=== PATIENT | male | born 1950 | race Caucasian/White ===

== ENCOUNTER 2018-01-05 04:55 | Inpatient (IN) | payer OTHER ==
[~2018-01-05] VITALS: Ht 182.9 cm; Wt 91.9 kg
[~2018-01-05 04:55] MED LIST: AMLO5 PO; ASPI81CH PO; ATEN50 PO; CIPR500 PO; DIPH50 PO; FURO20 PO; LORA10 PO; NADO40 PO; Omeprazole20 M1 PO; RANI150 PO; SPIR50 PO
[2018-01-05 05:24] LABS: BASOPHILS ABSOLUTE AUTO 0.04 K/mm3 (0.00-0.23); BASOPHILS PERCENT AUTO 1 % (0-2); EOSINOPHILS ABSOLUTE AUTO 0.01 K/mm3 (0.00-0.68); EOSINOPHILS PERCENT AUTO 0 % (0-6); Hematocrit 40.3 % (37.0-53.0); Hemoglobin 13.9 g/dL (13.5-17.5); IMMATURE GRAN ABSOLUTE AUTO 0.01 K/mm3 (0.00-0.10); IMMATURE GRAN PERCENT AUTO 0 % (0-1); LYMPHOCYTES ABSOLUTE AUTO 0.41 K/mm3 (0.84-5.20); LYMPHOCYTES PERCENT AUTO 7 % (21-46); MONOCYTES ABSOLUTE AUTO 0.45 K/mm3 (0.16-1.47); MONOCYTES PERCENT AUTO 7 % (4-13); Mean Corpuscular HGB 35.8 pg (26.0-34.0); Mean Corpuscular HGB Conc 34.5 g/dL (31.5-36.5); Mean Corpuscular Volume 104 fL (80-100); NEUTROPHILS ABSOLUTE AUTO 5.15 K/mm3 (1.96-9.15); NEUTROPHILS PERCENT AUTO 85 % (41-73); RDW Coefficient Variation 12.4 % (11.7-14.2); RDW Standard Deviation 47.3 fL (35.1-46.3); Red Blood Cell Count 3.88 M/mm3 (4.30-5.90); White Blood Cell Count 6.07 K/mm3 (4.00-11.30)
[2018-01-05 05:33] LABS: Platelet Count 43 K/mm3 (150-400)
[2018-01-05 05:40] LABS: Alanine Aminotransfer (ALT/SGP 116 U/L (12-78); Albumin, Blood 3.3 g/dL (3.4-5.0); Albumin/Globulin Ratio 0.7 (0.8-1.8); Alk Phos 93 U/L (50-136); Anion Gap 20 mmol/L (6-16); Aspartate Aminotrans (AST/SGOT 165 U/L (12-37); Bilirubin, Total 5.1 mg/dL (0.1-1.0); Blood Urea Nitrogen 11 mg/dL (8-24); Bun/Creatinine Ratio 15.4 (12.0-20.0); CO2, Blood 21 mmol/L (21-32); Calcium, Blood 8.9 mg/dL (8.5-10.1); Chloride, Blood 95 mmol/L (98-108); Creatinine, Blood 0.72 mg/dL (0.60-1.20); Globulin, Blood 4.6 g/dL (2.2-4.0); Glomerular Filtration Rate >60 (60-); Glucose, Blood 131 mg/dL (70-99); Potassium, Blood 3.6 mmol/L (3.5-5.5); Sodium, Blood 136 mmol/L (136-145); Total Protein, Blood 7.9 g/dL (6.4-8.2)
[2018-01-05 05:43] LABS: International Normalized Ratio 1.36; Prothrombin Time Results 13.8 Sec (9.7-11.5)
[2018-01-05] MEDS ORDERED: FINA5 PO (06:42)
[2018-01-05] MEDS ORDERED: TAMS.4ER PO (06:43)
[2018-01-05] MEDS ORDERED: GABA300 PO (06:43)
[2018-01-05] MEDS ORDERED: Advair Hfa 230-12 GM (06:44)
[2018-01-05 10:31] LABS: Alpha Feto Protein, Tumor Mkr 4.4 ng/mL (0.0-8.0); Percent Saturation 92.7 % (20.0-50.0)
[2018-01-05 10:34] LABS: Bilirubin, Direct 2.1 mg/dL (0.0-0.3)
[2018-01-05 10:35] LABS: Acetaminophen, Random <2.0 ug/mL (10.0-30.0)
[2018-01-05 11:36] LABS: Hematocrit 34.4 % (37.0-53.0); Hemoglobin 11.9 g/dL (13.5-17.5)
[2018-01-05] MEDS ORDERED: RANI150EL PO (11:36)
[2018-01-05 17:12] LABS: Hematocrit 32.5 % (37.0-53.0); Hemoglobin 11.1 g/dL (13.5-17.5)
[2018-01-05 23:14] LABS: Hematocrit 33.7 % (37.0-53.0); Hemoglobin 11.6 g/dL (13.5-17.5)
[2018-01-05 23:17] LABS: Source, Urine Clean Catch
[2018-01-05 23:21] LABS: Blood, Urine 1+ (Neg); Glucose Qualitative, Urine Neg (Neg); Ketones, Urine 1+ (Neg); Leukocyte Esterase, Urine 1+ (Neg); Nitrite, Urine Neg (Neg); Protein, Urine Neg (Neg); Urobilinogen, Urine 2+ (Normal)
[2018-01-05 23:24] LABS: Appearance, Urine Clear (Clear); Bilirubin, Urine 1+ (Neg); Color, Urine Amber (P-Yellow)
[2018-01-05 23:30] LABS: Bacteria Few /hpf; Red Blood Cells, Urine 0-2 /hpf (0-2); Squamous Epithelial Cells Few /hpf (Few)
[2018-01-06 04:43] LABS: Hematocrit 33.6 % (37.0-53.0); Hemoglobin 11.4 g/dL (13.5-17.5); Mean Corpuscular HGB 36.2 pg (26.0-34.0); Mean Corpuscular HGB Conc 33.9 g/dL (31.5-36.5); Mean Platelet Volume 12.7 fL (9.1-12.4); RDW Coefficient Variation 12.3 % (11.7-14.2); RDW Standard Deviation 48.5 fL (35.1-46.3); Red Blood Cell Count 3.15 M/mm3 (4.30-5.90); White Blood Cell Count 3.45 K/mm3 (4.00-11.30)
[2018-01-06 04:50] LABS: Mean Corpuscular Volume 107 fL (80-100); Platelet Count 45 K/mm3 (150-400)
[2018-01-06 04:56] LABS: Alanine Aminotransfer (ALT/SGP 103 U/L (12-78); Albumin, Blood 2.5 g/dL (3.4-5.0); Albumin/Globulin Ratio 0.7 (0.8-1.8); Alk Phos 70 U/L (50-136); Anion Gap 5 mmol/L (6-16); Aspartate Aminotrans (AST/SGOT 166 U/L (12-37); Bilirubin, Total 4.1 mg/dL (0.1-1.0); Blood Urea Nitrogen 12 mg/dL (8-24); Bun/Creatinine Ratio 17.9 (12.0-20.0); CO2, Blood 29 mmol/L (21-32); Calcium, Blood 7.9 mg/dL (8.5-10.1); Chloride, Blood 105 mmol/L (98-108); Creatinine, Blood 0.67 mg/dL (0.60-1.20); Globulin, Blood 3.5 g/dL (2.2-4.0); Glomerular Filtration Rate >60 (60-); Glucose, Blood 86 mg/dL (70-99); Magnesium, Blood 1.8 mg/dL (1.6-2.4); Phosphorus, Blood 2.7 mg/dL (2.5-4.9); Potassium, Blood 3.8 mmol/L (3.5-5.5); Sodium, Blood 139 mmol/L (136-145)
[2018-01-06 06:11] LABS: ALPHA-1-ANTITRYPSIN, SERUM 138 mg/dL (90-200)
[2018-01-06 07:11] LABS: HBSAG SCREEN Negative (Negative); HEP A AB, IGM Negative (Negative); HEP B CORE AB, IGM Negative (Negative); HEP C VIRUS AB <0.1 (0.0-0.9)
[2018-01-06 09:08] LABS: HBSAG SCREEN Negative (Negative); HEP B CORE AB, TOT Negative (Negative); HEP C VIRUS AB 0.1 (0.0-0.9)
[2018-01-07 15:06] LABS: CERULOPLASMIN 14.2 mg/dL (16.0-31.0)
[2018-01-08 04:57] LABS: Hematocrit 34.2 % (37.0-53.0); Hemoglobin 11.6 g/dL (13.5-17.5); Mean Corpuscular HGB 35.3 pg (26.0-34.0); Mean Corpuscular HGB Conc 33.9 g/dL (31.5-36.5); Mean Platelet Volume 12.1 fL (9.1-12.4); Platelet Count 55 K/mm3 (150-400); RDW Coefficient Variation 11.9 % (11.7-14.2); RDW Standard Deviation 45.4 fL (35.1-46.3); Red Blood Cell Count 3.29 M/mm3 (4.30-5.90); White Blood Cell Count 3.13 K/mm3 (4.00-11.30)
[2018-01-08 05:01] LABS: Mean Corpuscular Volume 104 fL (80-100)
[2018-01-08 05:44] LABS: Anion Gap 9 mmol/L (6-16); Blood Urea Nitrogen 9 mg/dL (8-24); Bun/Creatinine Ratio 12.8 (12.0-20.0); CO2, Blood 23 mmol/L (21-32); Calcium, Blood 7.9 mg/dL (8.5-10.1); Chloride, Blood 107 mmol/L (98-108); Glomerular Filtration Rate >60 (60-); Glucose, Blood 93 mg/dL (70-99); Potassium, Blood 3.8 mmol/L (3.5-5.5); Sodium, Blood 139 mmol/L (136-145)
[2018-01-08] MEDS ORDERED: BENZ100A PO (10:15)
[2018-01-08] MEDS ORDERED: CIPR500 PO (10:15)
[2018-01-08] MEDS ORDERED: AZELASTINE137 MCG/0. (10:15)
[2018-01-08 11:41] LABS: Calcium, Ionized (POC) 0.97 mmol/L (1.10-1.46); Chloride (POC) 95 mmol/L (98-108); Creatinine (POC) 0.7 mg/dL (0.8-1.3); Glucose (ISTAT POC) 134 mg/dL (70-99); Hemoglobin (POC) 13.9 g/dL (13.5-17.5); Sodium (POC) 136 mmol/L (135-148); Total CO2 (POC) 24 mmol/L (21-32)
== END 2018-01-08 10:41 | disposition home or self-care (01) | DRG 432 ==
LOC: ER 04:55 → MEDS 04:56 → ICUE 04:56 → PCU 04:56 → MEDS 07:43 → ICUE 12:55 → MEDS 01-06 17:08
PROVIDERS: Emergency Medicine; Internal Medicine; Student in an Organized Health Care Education/Training Program
PROC: 06L38CZ Occlusion of Esophageal Vein with Extraluminal Device, Via Natural or Artificial Opening Endoscopic (ICD-10-PCS; principal; 2018-01-06 10:00)
DX: K70.30 Alcoholic cirrhosis of liver without ascites (principal); I85.11 Secondary esophageal varices with bleeding; F10.239 Alcohol dependence with withdrawal, unspecified; K76.6 Portal hypertension; I10 Essential (primary) hypertension; Z79.82 Long term (current) use of aspirin; K21.9 Gastro-esophageal reflux disease without esophagitis; K70.10 Alcoholic hepatitis without ascites; R56.9 Unspecified convulsions; D64.9 Anemia, unspecified
CPT/HCPCS: 36415; 80047; 80048; 80053; 80074; 81001; 82103; 82105; 82248; 82390; 82728; 83516; 83540; 83550; 83690; 83735; 84100; 85014; 85018; 85025; 85027; 85610; 86038; 86317; 86704; 86708; 86803; 86850; 86900; 86901; 87340; 93005; 93010; 93975; 96365; 96366; 96368; 99285-25; C9113; G0480; J0696; J2060; J2250; J3411; J3475; J3480; J7042; J7050; J7120

== ENCOUNTER 2020-12-08 21:58 | Emergency (ER) | payer OTHER ==
[~2020-12-08] VITALS: Ht 182.9 cm; Wt 79.4 kg
[~2020-12-08 21:58] MED LIST changes: +AZELASTINE137 MCG/0.; +Advair Hfa 230-12 GM; +BENZ100A PO; +FINA5 PO; +GABA300 PO; +RANI150EL PO; +TAMS.4ER PO
[2020-12-08 22:52] LABS: BASOPHILS ABSOLUTE AUTO 0.02 K/mm3 (0.00-0.23); BASOPHILS PERCENT AUTO 0 % (0-2); EOSINOPHILS PERCENT AUTO 0 % (0-6); Hematocrit 38.6 % (37.0-53.0); Hemoglobin 13.4 g/dL (13.5-17.5); IMMATURE GRAN ABSOLUTE AUTO 0.01 K/mm3 (0.00-0.10); IMMATURE GRAN PERCENT AUTO 0 % (0-1); LYMPHOCYTES ABSOLUTE AUTO 0.22 K/mm3 (0.84-5.20); LYMPHOCYTES PERCENT AUTO 5 % (21-46); MONOCYTES ABSOLUTE AUTO 0.35 K/mm3 (0.16-1.47); MONOCYTES PERCENT AUTO 7 % (4-13); Mean Corpuscular HGB 34.8 pg (26.0-34.0); Mean Corpuscular HGB Conc 34.7 g/dL (31.5-36.5); Mean Corpuscular Volume 100 fL (80-100); NEUTROPHILS ABSOLUTE AUTO 4.34 K/mm3 (1.96-9.15); NEUTROPHILS PERCENT AUTO 88 % (41-73); Platelet Count 62 K/mm3 (150-400); RDW Coefficient Variation 13.9 % (11.7-14.2); RDW Standard Deviation 50.9 fL (35.1-46.3); Red Blood Cell Count 3.85 M/mm3 (4.30-5.90); White Blood Cell Count 4.94 K/mm3 (4.00-11.30)
[2020-12-08 23:01] LABS: Alanine Aminotransfer (ALT/SGP 47 U/L (12-78); Albumin, Blood 3.4 g/dL (3.4-5.0); Albumin/Globulin Ratio 0.8 (0.8-1.8); Alk Phos 66 U/L (50-136); Anion Gap 18 mmol/L (6-16); Aspartate Aminotrans (AST/SGOT 78 U/L (12-37); Bilirubin, Total 3.7 mg/dL (0.1-1.0); Blood Urea Nitrogen 8 mg/dL (8-24); Bun/Creatinine Ratio 11.8 (12.0-20.0); CO2, Blood 20 mmol/L (21-32); Calcium, Blood 8.7 mg/dL (8.5-10.1); Chloride, Blood 97 mmol/L (98-108); Creatinine, Blood 0.68 mg/dL (0.60-1.20); Globulin, Blood 4.2 g/dL (2.2-4.0); Glomerular Filtration Rate >60 (60-); Glucose, Blood 89 mg/dL (70-99); Potassium, Blood 3.8 mmol/L (3.5-5.5); Sodium, Blood 135 mmol/L (136-145); Total Protein, Blood 7.6 g/dL (6.4-8.2)
[2020-12-09] MEDS ORDERED: PROM25 PO (00:01)
== END 2020-12-09 00:43 | disposition home or self-care (01) ==
LOC: ER 21:58
PROVIDERS: Emergency Medicine
DX: R10.9 Unspecified abdominal pain (principal); R11.10 Vomiting, unspecified; G89.29 Other chronic pain; I10 Essential (primary) hypertension; Z87.891 Personal history of nicotine dependence; Z79.899 Other long term (current) drug therapy
CPT/HCPCS: 80053; 82272; 83690; 85025; 99284; A9270; J7120

== ENCOUNTER 2021-09-03 20:43 | Emergency (ER) | payer OTHER ==
[~2021-09-03] VITALS: Ht 182.9 cm; Wt 79.4 kg
[~2021-09-03 20:43] MED LIST changes: +PREG50 PO; +PROM25 PO; +VITAMIN B125000 MC1
[2021-09-03 21:59] LABS: BASOPHILS PERCENT AUTO 1 % (0-2); EOSINOPHILS ABSOLUTE AUTO 0.01 K/mm3 (0.00-0.68); EOSINOPHILS PERCENT AUTO 0 % (0-6); Hematocrit 47.4 % (37.0-53.0); Hemoglobin 16.6 g/dL (13.5-17.5); IMMATURE GRAN ABSOLUTE AUTO 0.02 K/mm3 (0.00-0.10); IMMATURE GRAN PERCENT AUTO 0 % (0-1); LYMPHOCYTES ABSOLUTE AUTO 0.42 K/mm3 (0.84-5.20); LYMPHOCYTES PERCENT AUTO 6 % (21-46); MONOCYTES ABSOLUTE AUTO 0.58 K/mm3 (0.16-1.47); MONOCYTES PERCENT AUTO 8 % (4-13); Mean Corpuscular HGB 35.5 pg (26.0-34.0); Mean Corpuscular Volume 101 fL (80-100); Mean Platelet Volume 11.6 fL (9.1-12.4); NEUTROPHILS ABSOLUTE AUTO 6.02 K/mm3 (1.96-9.15); NEUTROPHILS PERCENT AUTO 84 % (41-73); Platelet Count 82 K/mm3 (150-400); RDW Coefficient Variation 12.8 % (11.7-14.2); RDW Standard Deviation 47.8 fL (35.1-46.3); Red Blood Cell Count 4.68 M/mm3 (4.30-5.90); White Blood Cell Count 7.15 K/mm3 (4.00-11.30)
[2021-09-03 22:10] LABS: Albumin, Blood 4.1 g/dL (3.4-5.0); Albumin/Globulin Ratio 0.8 (0.8-1.8); Bilirubin, Total 3.8 mg/dL (0.1-1.0); Bun/Creatinine Ratio 14.4 (12.0-20.0); Calcium, Blood 9.4 mg/dL (8.5-10.1); Creatinine, Blood 0.63 mg/dL (0.60-1.20); Globulin, Blood 4.9 g/dL (2.2-4.0); Magnesium, Blood 2.1 mg/dL (1.6-2.4); Potassium, Blood 3.7 mmol/L (3.5-5.5)
[2021-09-03 23:10] LABS: International Normalized Ratio 1.3; Prothrombin Time Results 13.4 Sec (9.7-11.5)
[2021-09-04] MEDS ORDERED: HURRICAINE ONE1 EACH MM (00:46)
[2021-09-04] MEDS ORDERED: METPRE4DP PO (00:46)
[2021-09-04] MEDS ORDERED: AMOCLA875 PO (00:46)
[2021-09-04] MEDS ORDERED: Mucinex600 MG PO (00:46)
== END 2021-09-04 01:09 | disposition home or self-care (01) ==
LOC: ER 20:43
PROVIDERS: Emergency Medicine
DX: K12.2 Cellulitis and abscess of mouth (principal); J40 Bronchitis, not specified as acute or chronic; F10.229 Alcohol dependence with intoxication, unspecified; K76.9 Liver disease, unspecified; I10 Essential (primary) hypertension; Z88.8 Allergy status to other drugs, medicaments and biological substances; Z79.899 Other long term (current) drug therapy
CPT/HCPCS: 71045; 71260; 80053; 83735; 85025; 85610; 85730; 86850; 86900; 86901; 93005; 93010; 94640; 94664; 96361-59; 96374-59; 96375; 96375-59; 99285-25; A9270; G0480; J1100; J2060; J2405; J7030; Q9967

== ENCOUNTER 2021-12-07 07:03 | Day surgery (SDC) | payer OTHER ==
[~2021-12-07] VITALS: Ht 182.9 cm; Wt 82.3 kg
[~2021-12-07 07:03] MED LIST changes: +AMOCLA875 PO; +HURRICAINE ONE1 EACH MM; +MAGNESIUM OXID400 M5 PO; +METPRE4DP PO; +Mucinex600 MG PO
--- NOTE | 2021-12-07 08:11 | NUR ---
History, Chart, Medications and Allergies reviewed before start of procedure. Lungs clear T/O to Auscultation. Patient confirms NPO status and agrees with scheduled surgery. Pre-Op teaching done. Pt verbalizes understanding. Patient reports completing Chlorhexadine shower X2 prior to admission to hospital.
--- NOTE | 2021-12-07 12:11 | NUR ---
Discharge instructions reviewed with patient. Patient verbalizes understanding. Copy given to patient to take home. Patient States Post-Procedure ride home has been arranged. Discharged via wheelchair to private car for ride home.
== END 2021-12-07 12:02 | disposition home or self-care (01) ==
LOC: ORD 07:03 → ORSCMMR 07:04 → ORD 08:30
PROVIDERS: Surgery
PROC: 0YQ50ZZ Repair Right Inguinal Region, Open Approach (ICD-10-PCS; principal; 2021-12-07 08:30)
DX: K40.90 Unilateral inguinal hernia, without obstruction or gangrene, not specified as recurrent (principal); K21.9 Gastro-esophageal reflux disease without esophagitis; E78.5 Hyperlipidemia, unspecified; I10 Essential (primary) hypertension; K70.31 Alcoholic cirrhosis of liver with ascites; G60.9 Hereditary and idiopathic neuropathy, unspecified; F43.10 Post-traumatic stress disorder, unspecified; X58.XXXA Exposure to other specified factors, initial encounter; Z87.891 Personal history of nicotine dependence
CPT/HCPCS: A9270; C1781; J0690; J1100; J2370; J2405; J2704; J2795; J3010; J7120

== ENCOUNTER 2022-05-19 12:35 | Emergency (ER) | payer OTHER ==
[~2022-05-19] VITALS: Ht 182.9 cm; Wt 79.4 kg
[2022-05-19 13:19] LABS: Source, Urine Clean Catch
[2022-05-19 13:35] LABS: BASOPHILS ABSOLUTE AUTO 0.04 K/mm3 (0.00-0.23); BASOPHILS PERCENT AUTO 1 % (0-2); EOSINOPHILS ABSOLUTE AUTO 0.01 K/mm3 (0.00-0.68); EOSINOPHILS PERCENT AUTO 0 % (0-6); Hematocrit 37.5 % (37.0-53.0); Hemoglobin 13.7 g/dL (13.5-17.5); IMMATURE GRAN ABSOLUTE AUTO 0.02 K/mm3 (0.00-0.10); IMMATURE GRAN PERCENT AUTO 0 % (0-1); LYMPHOCYTES ABSOLUTE AUTO 0.32 K/mm3 (0.84-5.20); LYMPHOCYTES PERCENT AUTO 6 % (21-46); MONOCYTES ABSOLUTE AUTO 0.75 K/mm3 (0.16-1.47); MONOCYTES PERCENT AUTO 13 % (4-13); Mean Corpuscular HGB 35.5 pg (26.0-34.0); Mean Corpuscular HGB Conc 36.5 g/dL (31.5-36.5); Mean Corpuscular Volume 97 fL (80-100); Mean Platelet Volume 11.3 fL (9.1-12.4); NEUTROPHILS ABSOLUTE AUTO 4.65 K/mm3 (1.96-9.15); NEUTROPHILS PERCENT AUTO 80 % (41-73); Platelet Count 125 K/mm3 (150-400); RDW Coefficient Variation 13.1 % (11.7-14.2); RDW Standard Deviation 46.1 fL (35.1-46.3); Red Blood Cell Count 3.86 M/mm3 (4.30-5.90); White Blood Cell Count 5.79 K/mm3 (4.00-11.30)
[2022-05-19 13:36] LABS: Appearance, Urine Clear (Clear); Bilirubin, Urine Neg (Neg); Blood, Urine Neg (Neg); Color, Urine Yellow (P-Yellow); Glucose Qualitative, Urine Neg (Neg); Ketones, Urine Neg (Neg); Leukocyte Esterase, Urine Neg (Neg); Nitrite, Urine Neg (Neg); Protein, Urine Neg (Neg); Urobilinogen, Urine NORM (Normal)
[2022-05-19 13:48] LABS: Albumin, Blood 2.6 g/dL (3.4-5.0); Albumin/Globulin Ratio 0.5 (0.8-1.8); Bilirubin, Total 3.2 mg/dL (0.1-1.0); Bun/Creatinine Ratio 12.2 (12.0-20.0); Calcium, Blood 8.9 mg/dL (8.5-10.1); Creatinine, Blood 0.57 mg/dL (0.60-1.20); Globulin, Blood 4.9 g/dL (2.2-4.0); Potassium, Blood 3.7 mmol/L (3.5-5.5); Total Protein, Blood 7.5 g/dL (6.4-8.2)
== END 2022-05-19 15:23 | disposition home or self-care (01) ==
LOC: ER 12:35
PROVIDERS: Student in an Organized Health Care Education/Training Program
DX: R18.8 Other ascites (principal); F10.10 Alcohol abuse, uncomplicated; I10 Essential (primary) hypertension; Z79.899 Other long term (current) drug therapy; Z87.891 Personal history of nicotine dependence
CPT/HCPCS: 74177; 80053; 81003; 83690; 85025; 96374-59; 99284-25; J2405; J7030; Q9967

== ENCOUNTER 2022-06-02 10:17 | Emergency (ER) | payer OTHER ==
[~2022-06-02] VITALS: Ht 182.9 cm; Wt 78.9 kg
[2022-06-02 11:00] LABS: BASOPHILS ABSOLUTE AUTO 0.07 K/mm3 (0.00-0.23); BASOPHILS PERCENT AUTO 1 % (0-2); EOSINOPHILS ABSOLUTE AUTO 0.05 K/mm3 (0.00-0.68); EOSINOPHILS PERCENT AUTO 1 % (0-6); Hematocrit 42.6 % (37.0-53.0); Hemoglobin 14.8 g/dL (13.5-17.5); IMMATURE GRAN ABSOLUTE AUTO 0.03 K/mm3 (0.00-0.10); IMMATURE GRAN PERCENT AUTO 0 % (0-1); LYMPHOCYTES ABSOLUTE AUTO 0.64 K/mm3 (0.84-5.20); LYMPHOCYTES PERCENT AUTO 8 % (21-46); MONOCYTES ABSOLUTE AUTO 1.26 K/mm3 (0.16-1.47); MONOCYTES PERCENT AUTO 16 % (4-13); Mean Corpuscular HGB 34.5 pg (26.0-34.0); Mean Corpuscular HGB Conc 34.7 g/dL (31.5-36.5); Mean Corpuscular Volume 99 fL (80-100); Mean Platelet Volume 11.4 fL (9.1-12.4); NEUTROPHILS PERCENT AUTO 75 % (41-73); Platelet Count 168 K/mm3 (150-400); Red Blood Cell Count 4.29 M/mm3 (4.30-5.90); White Blood Cell Count 8.15 K/mm3 (4.00-11.30)
[2022-06-02 11:20] LABS: Alanine Aminotransfer (ALT/SGP 21 U/L (12-78); Albumin, Blood 2.7 g/dL (3.4-5.0); Albumin/Globulin Ratio 0.6 (0.8-1.8); Alk Phos 78 U/L (50-136); Anion Gap 6 mmol/L (6-16); Aspartate Aminotrans (AST/SGOT 43 U/L (12-37); Bilirubin, Total 3.6 mg/dL (0.1-1.0); Blood Urea Nitrogen 12 mg/dL (8-24); Bun/Creatinine Ratio 21.2 (12.0-20.0); CO2, Blood 29 mmol/L (21-32); Calcium, Blood 9.2 mg/dL (8.5-10.1); Chloride, Blood 97 mmol/L (98-108); Creatinine, Blood 0.57 mg/dL (0.60-1.20); Ethanol (Alcohol), Blood, Med <3 mg/dL; Globulin, Blood 4.9 g/dL (2.2-4.0); Glomerular Filtration Rate 104 (60-); Glucose, Blood 116 mg/dL (70-99); Potassium, Blood 3.6 mmol/L (3.5-5.5); Sodium, Blood 132 mmol/L (136-145); Total Protein, Blood 7.6 g/dL (6.4-8.2)
[2022-06-02] MEDS ORDERED: METO25ER PO (13:57)
== END 2022-06-02 18:50 | disposition home or self-care (01) ==
LOC: ER 10:17
PROVIDERS: Emergency Medicine
DX: I48.0 Paroxysmal atrial fibrillation (principal); K74.60 Unspecified cirrhosis of liver; Z79.899 Other long term (current) drug therapy; I10 Essential (primary) hypertension; Z87.891 Personal history of nicotine dependence
CPT/HCPCS: 49083; 80053; 82140; 83690; 84484; 85025; 93005; 93010; 96365-59; 96366-59; 99284-25; A9270; G0480; P9046; P9047

== ENCOUNTER 2022-06-16 09:10 | Emergency (ER) | payer OTHER ==
[~2022-06-16] VITALS: Ht 182.9 cm; Wt 79.4 kg
[~2022-06-16 09:10] MED LIST changes: +METO25ER PO
[2022-06-16 10:38] LABS: International Normalized Ratio 1.19; Prothrombin Time Results 12.4 Sec (9.7-11.5)
[2022-06-16 10:51] LABS: Albumin/Globulin Ratio 0.6 (0.8-1.8); Bilirubin, Total 2.9 mg/dL (0.1-1.0); Bun/Creatinine Ratio 22.4 (12.0-20.0); Calcium, Blood 9.4 mg/dL (8.5-10.1); Creatinine, Blood 0.89 mg/dL (0.60-1.20); Globulin, Blood 4.9 g/dL (2.2-4.0); Potassium, Blood 5.1 mmol/L (3.5-5.5); Total Protein, Blood 7.9 g/dL (6.4-8.2)
[2022-06-16 11:01] LABS: BASOPHILS ABSOLUTE AUTO 0.06 K/mm3 (0.00-0.23); BASOPHILS PERCENT AUTO 1 % (0-2); EOSINOPHILS ABSOLUTE AUTO 0.05 K/mm3 (0.00-0.68); EOSINOPHILS PERCENT AUTO 1 % (0-6); Hemoglobin 13.1 g/dL (13.5-17.5); IMMATURE GRAN ABSOLUTE AUTO 0.07 K/mm3 (0.00-0.10); IMMATURE GRAN PERCENT AUTO 1 % (0-1); LYMPHOCYTES ABSOLUTE AUTO 0.45 K/mm3 (0.84-5.20); LYMPHOCYTES PERCENT AUTO 6 % (21-46); MONOCYTES ABSOLUTE AUTO 1.43 K/mm3 (0.16-1.47); MONOCYTES PERCENT AUTO 18 % (4-13); Mean Corpuscular HGB 33.4 pg (26.0-34.0); Mean Corpuscular HGB Conc 34.5 g/dL (31.5-36.5); Mean Corpuscular Volume 97 fL (80-100); Mean Platelet Volume 11.3 fL (9.1-12.4); NEUTROPHILS ABSOLUTE AUTO 5.71 K/mm3 (1.96-9.15); NEUTROPHILS PERCENT AUTO 74 % (41-73); Platelet Count 146 K/mm3 (150-400); RDW Coefficient Variation 13.1 % (11.7-14.2); RDW Standard Deviation 46.5 fL (35.1-46.3); Red Blood Cell Count 3.92 M/mm3 (4.30-5.90); White Blood Cell Count 7.77 K/mm3 (4.00-11.30)
== END 2022-06-16 14:24 | disposition home or self-care (01) ==
LOC: ER 09:10
PROVIDERS: Physician Assistant
DX: R18.8 Other ascites (principal); F10.10 Alcohol abuse, uncomplicated; Z79.899 Other long term (current) drug therapy; I10 Essential (primary) hypertension; I48.0 Paroxysmal atrial fibrillation; Z87.891 Personal history of nicotine dependence
CPT/HCPCS: 49083; 80053; 85025; 85610; 96365-59; 99284-25; P9046; P9047

== ENCOUNTER 2022-06-27 10:30 | Emergency (ER) | payer OTHER ==
[~2022-06-27] VITALS: Ht 182.9 cm; Wt 77.1 kg
[2022-06-27] MEDS ORDERED: BENZ100A PO (10:59)
[2022-06-27] MEDS ORDERED: PROM25 PO (11:00)
== END 2022-06-27 12:46 | disposition home or self-care (01) ==
LOC: ER 10:30
DX: K70.31 Alcoholic cirrhosis of liver with ascites (principal); I10 Essential (primary) hypertension; Z87.891 Personal history of nicotine dependence; Z79.899 Other long term (current) drug therapy
CPT/HCPCS: 36415; 49083; 99284-25

== ENCOUNTER 2022-07-05 14:38 | Inpatient (IN) | payer OTHER ==
[~2022-07-05] VITALS: Ht 182.9 cm; Wt 64.8 kg
[2022-07-05 14:50] LABS: Chloride (POC) 95 mmol/L (98-108); Creatinine (POC) 1.5 mg/dL (0.8-1.3); Glucose (ISTAT POC) 118 mg/dL (70-99); Hemoglobin (POC) 12.9 g/dL (13.5-17.5); Potassium (POC) 5.4 mmol/L (3.5-5.5); Sodium (POC) 129 mmol/L (135-148); Total CO2 (POC) 26 mmol/L (21-32)
[2022-07-05 15:00] LABS: Source, Urine Foley catheter
[2022-07-05 15:02] LABS: BASOPHILS ABSOLUTE AUTO 0.02 K/mm3 (0.00-0.23); BASOPHILS PERCENT AUTO 0 % (0-2); EOSINOPHILS PERCENT AUTO 0 % (0-6); Hematocrit 35.8 % (37.0-53.0); Hemoglobin 12.8 g/dL (13.5-17.5); IMMATURE GRAN ABSOLUTE AUTO 0.08 K/mm3 (0.00-0.10); IMMATURE GRAN PERCENT AUTO 1 % (0-1); LYMPHOCYTES ABSOLUTE AUTO 0.19 K/mm3 (0.84-5.20); LYMPHOCYTES PERCENT AUTO 1 % (21-46); MONOCYTES ABSOLUTE AUTO 1.53 K/mm3 (0.16-1.47); MONOCYTES PERCENT AUTO 11 % (4-13); Mean Corpuscular HGB Conc 35.8 g/dL (31.5-36.5); Mean Corpuscular Volume 95 fL (80-100); Mean Platelet Volume 11.1 fL (9.1-12.4); NEUTROPHILS ABSOLUTE AUTO 12.45 K/mm3 (1.96-9.15); NEUTROPHILS PERCENT AUTO 87 % (41-73); Platelet Count 226 K/mm3 (150-400); RDW Coefficient Variation 13.4 % (11.7-14.2); Red Blood Cell Count 3.76 M/mm3 (4.30-5.90); White Blood Cell Count 14.27 K/mm3 (4.00-11.30)
[2022-07-05 15:08] LABS: PCO2 Arterial 30.2 mmHg (35-45); PO2 Arterial 91.4 mmHg (80-100); pH Blood Arterial 7.54 (7.35-7.45)
[2022-07-05 15:15] LABS: Appearance, Urine Clear (Clear); Bilirubin, Urine Neg (Neg); Blood, Urine Neg (Neg); Color, Urine Amber (P-Yellow); Glucose Qualitative, Urine Neg (Neg); Ketones, Urine Neg (Neg); Leukocyte Esterase, Urine Neg (Neg); Nitrite, Urine Neg (Neg); Protein, Urine 1+ (Neg); Specific Gravity, Urine 1.015 (1.003-1.022); Urobilinogen, Urine 1+ (Normal)
[2022-07-05 15:20] LABS: International Normalized Ratio 1.29; Prothrombin Time Results 13.3 Sec (9.7-11.5)
[2022-07-05 15:24] LABS: Ethanol (Alcohol), Blood, Med <3 mg/dL; Magnesium, Blood 2.1 mg/dL (1.6-2.4)
[2022-07-05 15:27] LABS: Alanine Aminotransfer (ALT/SGP 30 U/L (12-78); Albumin, Blood 2.7 g/dL (3.4-5.0); Albumin/Globulin Ratio 0.6 (0.8-1.8); Alk Phos 78 U/L (50-136); Anion Gap 11 mmol/L (6-16); Aspartate Aminotrans (AST/SGOT 56 U/L (12-37); Blood Urea Nitrogen 52 mg/dL (8-24); Bun/Creatinine Ratio 36.9 (12.0-20.0); CO2, Blood 24 mmol/L (21-32); Calcium, Blood 9.4 mg/dL (8.5-10.1); Chloride, Blood 97 mmol/L (98-108); Creatinine, Blood 1.41 mg/dL (0.60-1.20); Globulin, Blood 4.6 g/dL (2.2-4.0); Glomerular Filtration Rate 53 (60-); Glucose, Blood 118 mg/dL (70-99); Sodium, Blood 132 mmol/L (136-145); Total Protein, Blood 7.3 g/dL (6.4-8.2)
[2022-07-05 15:28] LABS: U Cannabinoids Screen DETECTED
[2022-07-05 15:29] LABS: U Amphetamine Screen Not Detected; U Barbituate Screen Not Detected; U Benzodiazapine Screen Not Detected; U Buprenorphine Screen Not Detected; U Cocaine Screen Not Detected; U Methadone Screen Not Detected; U Methamphetamine Screen Not Detected; U Opiates Screen Not Detected; U Oxycodone Screen Not Detected; U Phencyclidine Screen Not Detected; U Propoxyphene Screen Not Detected
[2022-07-05 15:41] LABS: Influenza A, PCR NEGATIVE (NEGATIVE); Influenza B, PCR NEGATIVE (NEGATIVE); Resp Syncytial Virus, PCR NEGATIVE (NEGATIVE); SARS-Cov-2 (COVID-19) PCR, MMC NEGATIVE (NEGATIVE)
[2022-07-05 16:05] LABS: Creatine Kinase MB 3.5 ng/mL (0.0-3.6); Creatine Kinase MB Index 0.8 (0.0-4.0)
[2022-07-05 17:57] LABS: International Normalized Ratio 1.32; Prothrombin Time Results 13.6 Sec (9.7-11.5)
--- NOTE | 2022-07-05 18:44 | NUR ---
ASSUMED CARE: PT ARRIVES FROM ED INTUBATED. ETT 7.0, 25 AT THE TEETH. PT'S EYES OPEN. WITH COUGHING, MOVES ARMS INWARD. TOE FLEXION WITH NOXIOUS STIMULI. NO PURPOSEFUL MOVEMENT. RESTRAINTS IN PLACE. SINUS TACH AT 106. VENT SETTINGS 16/500/5/40%. RT AT BEDSIDE. NG TUBE IN PLACE WITH BROWN DRAINAGE, CLAMPED. TEMP FELICIANO WITH DARK YELLOW URINE DRAINING. SCRAPES NOTED TO BACK OF LEFT ARM AND LEFT RIBS. BRUISE TO LEFT FOREHEAD. VSS AT THIS TIME.
[2022-07-06 03:40] LABS: BASOPHILS ABSOLUTE AUTO 0.03 K/mm3 (0.00-0.23); BASOPHILS PERCENT AUTO 0 % (0-2); EOSINOPHILS ABSOLUTE AUTO 0.01 K/mm3 (0.00-0.68); EOSINOPHILS PERCENT AUTO 0 % (0-6); Hematocrit 34.9 % (37.0-53.0); Hemoglobin 12.4 g/dL (13.5-17.5); IMMATURE GRAN ABSOLUTE AUTO 0.05 K/mm3 (0.00-0.10); IMMATURE GRAN PERCENT AUTO 0 % (0-1); LYMPHOCYTES ABSOLUTE AUTO 0.78 K/mm3 (0.84-5.20); LYMPHOCYTES PERCENT AUTO 6 % (21-46); MONOCYTES ABSOLUTE AUTO 1.64 K/mm3 (0.16-1.47); MONOCYTES PERCENT AUTO 13 % (4-13); Mean Corpuscular HGB 34.1 pg (26.0-34.0); Mean Corpuscular HGB Conc 35.5 g/dL (31.5-36.5); Mean Corpuscular Volume 96 fL (80-100); Mean Platelet Volume 11.5 fL (9.1-12.4); NEUTROPHILS ABSOLUTE AUTO 10.23 K/mm3 (1.96-9.15); NEUTROPHILS PERCENT AUTO 80 % (41-73); Platelet Count 152 K/mm3 (150-400); RDW Coefficient Variation 13.7 % (11.7-14.2); Red Blood Cell Count 3.64 M/mm3 (4.30-5.90); White Blood Cell Count 12.74 K/mm3 (4.00-11.30)
[2022-07-06 04:01] LABS: Albumin, Blood 2.4 g/dL (3.4-5.0); Albumin/Globulin Ratio 0.5 (0.8-1.8); Bun/Creatinine Ratio 38.8 (12.0-20.0); Calcium, Blood 9.4 mg/dL (8.5-10.1); Creatinine, Blood 1.34 mg/dL (0.60-1.20); Globulin, Blood 4.4 g/dL (2.2-4.0); Total Protein, Blood 6.8 g/dL (6.4-8.2)
--- NOTE | 2022-07-06 06:05 | NUR ---
SHIFT SUMMARY: At start of shift, patient responds only with abnormal flexion to physical stimulation. No purposeful movement. Extremely stiff with flexion that resembles decerebrate posturing. PERRL, present cough and gag. At 1940, he was coughing, biting on the tube, stacking breaths on the vent and extremely stiff. I medicated with 1mg ativan which eased these symptoms. He remains stiff and coughs occasionally, but tolerating ventilator. I medicated him again with ativan around 2200 and 0000 because he began fighting ventilator and was extremely stiff, biting on tube, after repositioning. This morning, his mental status is improving. He is moving his head around, opening eyes spontaneously but does not track. He moves his extremities non-purposefully. Does not follow commands. He still has not had a bowel movement after lactulose administration, but his bowel tones are hyperactive and he is passing gas. Urine is dark shikha and hazy, output around 25ml/hr. Vitals stable and labs improving from yesterday.
--- NOTE | 2022-07-06 18:04 | NUR ---
SHIFT SUMMARY PT CONTINUED TO BECOME MORE AWAKE THROUGHOUT THIS SHIFT. PT RESTLESS AND UNABLE TO FOLLOW ANY COMMANDS. PT WITHDRAWS TO NOXIOUS STIMULI AND SPONTANEOUSLY MOVES ALL EXTREMITIES. PROPOFOL STARTED WITH INCREASED RESTLESSNESS, CURRENTLY INFUSING AT 30 MCG/KG/MIN. VENT SETTINGS REMAIN AC 16, TV 500, PEEP 5, FIO2 30%. PT WITH THICK ROOT ETT SECRETIONS. NGT IN PLACE WITH TF INFUSING AT 30 ML/HR. FELICIANO TEMP PROBE IN PLACE WITH SMALL AMOUNT OF DARK YELLOW/ANTON COLORED OUTPUT NOTED. VITAL SIGNS STABLE. SBW RESTRAINTS REMAIN IN PLACE. PARACENTESIS PERFORMED BY DR CONSTANTINO WITH 9L OF FLUID REMOVAL THIS MORNING. SITE C/D/I. WILL CONTINUE TO MONITOR AND REPORT OFF TO ONCOMING RN.
--- NOTE | 2022-07-06 19:00 | NUR ---
ASSUMED CARE ASSUMED CARE OF PATIENT. INTUBATED- AC/VC 16/500/5/30%. RR 16. SEDATED WITH PROPOFOL AT 30MCG/KG/MIN. SPONTANEOUS MOVEMENT NOTED IN HEAD. OPENS EYES TO VERBAL STIMULI. GAZE IS TO THE RIGHT AND PT DOES NOT TRACK. MONITOR SHOWS NSR, RATE 70s. AFEBRILE. BP STABLE. NG TO LEFT NARE WITH PIVOT 1.5 AT GOAL RATE OF 30MLS/HR. 120MLS H20 FLUSH Q2H PER ORDER. FELICIANO PATENT AND DRAINING TO GRAVITY. SEE SHIFT ASSESSMENT FOR FULL ASSESSMENT.
[2022-07-07 03:26] LABS: Hematocrit 32.4 % (37.0-53.0); Hemoglobin 11.3 g/dL (13.5-17.5); Mean Corpuscular HGB 33.8 pg (26.0-34.0); Mean Corpuscular HGB Conc 34.9 g/dL (31.5-36.5); Mean Corpuscular Volume 97 fL (80-100); Mean Platelet Volume 11.2 fL (9.1-12.4); Platelet Count 108 K/mm3 (150-400); RDW Coefficient Variation 14.1 % (11.7-14.2); RDW Standard Deviation 49.2 fL (35.1-46.3); Red Blood Cell Count 3.34 M/mm3 (4.30-5.90); White Blood Cell Count 7.84 K/mm3 (4.00-11.30)
[2022-07-07 03:48] LABS: Bun/Creatinine Ratio 38.7 (12.0-20.0); Calcium, Blood 8.8 mg/dL (8.5-10.1); Creatinine, Blood 1.11 mg/dL (0.60-1.20); Magnesium, Blood 2.1 mg/dL (1.6-2.4); Phosphorus, Blood 3.2 mg/dL (2.5-4.9); Potassium, Blood 3.2 mmol/L (3.5-5.5)
--- NOTE | 2022-07-07 04:55 | NUR ---
PROPOFOL PROPOFOL TITRATED OFF AT 0345 FOR SEDATION VACATION AND SBT. SBT STOPPED AFTER SEVERAL MINUTES D/T APNEIC PERIODS. PT NOT FOLLOWING ANY COMMANDS DURING SBT. PT NOW RESTLESS- MOVING HEAD BACK AND FORTH AND MOVING BUE AND BLE RESTLESSLY. REACHES FOR ETT TUBE, BUT ARMS ARE STILL TOO WEAK TO GRAB TUBE. NOT FOLLOWING COMMANDS/DIRECTIONS. PROPOFOL RESTARTED AT THIS TIME AT 20MCG/KG/MIN.
--- NOTE | 2022-07-07 06:35 | NUR ---
SHIFT SUMMARY NO ACUTE CHANGES. REMAINS INTUBATED- AC/VC 16/500/5/30%. SEDATED WITH PROPOFOL BETWEEN 20-30MCG/KG/MIN- NOW INFUSING AT 30MCG/KG/MIN. MOVES ALL EXTREMITIES SPONTANEOUSLY AND WEAKLY AT TIMES. STILL NOT FOLLOWING COMMANDS. OPENS EYES TO VERBAL STIMULI- GAZE CONTINUES TO BE TO THE RIGHT. VSS. HR 70s-80s. BP STABLE. NG WITH PIVOT 1.5 AT GOAL RATE OF 30MLS/HR. H20 FLUSH 120MLS Q2H. FELICIANO PATENT AND DRAINING TO GRAVITY. WILL REPORT TO ONCOMING RN WHEN AVAILABLE.
[2022-07-07 09:20] LABS: Hematocrit 33.1 % (37.0-53.0); Hemoglobin 11.8 g/dL (13.5-17.5)
--- NOTE | 2022-07-07 14:18 | NUR ---
SBT PT WITH PROPOFOL PLACED ON STANDBY SINCE 929 THIS AM AND PT ON PRESSURE SUPPORT 01/12, FI02 30%. PT HAS TOLERATED PRESSURE SUPPORT WELL, BUT HAS BEEN INCREASINGLY RESTLESS AND THRASHING IN BED. PT CONTINUES TO NOT FOLLOW DIRECTIONS. PROPOFOL RESTARTED AT 30 MCG/KG/MIN AT THIS TIME. RT TO SWITCH PT BACK TO AC SETTINGS.
--- NOTE | 2022-07-07 18:41 | NUR ---
SHIFT SUMMARY NO ACUTE CHANGES THIS SHIFT. PT HAS REMAINED INTUBATED WITH PROLONGED SBT THIS SHIFT. PT CURRENTLY WITH VENT SETTINGS AC 16, TV 500, PEEP 5, FIO2 30%. SEE SBT NOTE FOR MORE INFO. PROPOFOL INFUSING AT 30 MCG/KG/MIN AT THIS TIME. PT DOES NOT FOLLOW ANY COMMANDS. SPONTANEOUSLY MOVES EXTREMITIES. OGT IN PLACE WITH TF INFUSING AT GOAL RATE. FELICIANO REMAINS IN PLACE WITH MINIMAL AMOUNT OF DARK YELLOW URINE OUTPUT NOTED. RECTAL TUBE PLACED THIS SHIFT, PT WITH LIQUID ROOT STOOL OUTPUT NOTED. SBW RESTRAINTS IN PLACE. VITAL SIGNS STABLE. WILL CONTINUE TO MONITOR AND REPORT OFF TO ONCOMING RN.
--- NOTE | 2022-07-07 20:00 | NUR ---
ASSUMED CARE OF PT AT 1900. REPORT RECEIVED AT BEDSIDE. PT PRESENTS IN BED. INTUBATED WITH AC/VC 16, Tv 500, FIO2 30 PERCENT, AND PEEP 5. PT MAINTAINS SATURATIONS > 90 PERCENT. TUBE FEEDING AT GOAL. DIGNISHIELD IN PLACE. DRAINS PESTICIDE APPLICATOR BROWN LIQUID STOOL. FELICIANO WITH ANTON URINE. WILL REVIEW CHART AND PLAN OF CARE FOR THIS PT.
[2022-07-08 03:15] LABS: BASOPHILS ABSOLUTE AUTO 0.03 K/mm3 (0.00-0.23); BASOPHILS PERCENT AUTO 0 % (0-2); EOSINOPHILS ABSOLUTE AUTO 0.08 K/mm3 (0.00-0.68); EOSINOPHILS PERCENT AUTO 1 % (0-6); Hematocrit 34.2 % (37.0-53.0); Hemoglobin 12.3 g/dL (13.5-17.5); IMMATURE GRAN ABSOLUTE AUTO 0.03 K/mm3 (0.00-0.10); IMMATURE GRAN PERCENT AUTO 0 % (0-1); LYMPHOCYTES ABSOLUTE AUTO 0.59 K/mm3 (0.84-5.20); LYMPHOCYTES PERCENT AUTO 6 % (21-46); MONOCYTES ABSOLUTE AUTO 1.25 K/mm3 (0.16-1.47); MONOCYTES PERCENT AUTO 13 % (4-13); Mean Corpuscular HGB 34.8 pg (26.0-34.0); Mean Corpuscular Volume 97 fL (80-100); Mean Platelet Volume 11.6 fL (9.1-12.4); NEUTROPHILS ABSOLUTE AUTO 7.55 K/mm3 (1.96-9.15); NEUTROPHILS PERCENT AUTO 79 % (41-73); Platelet Count 145 K/mm3 (150-400); RDW Coefficient Variation 14.2 % (11.7-14.2); RDW Standard Deviation 49.9 fL (35.1-46.3); Red Blood Cell Count 3.53 M/mm3 (4.30-5.90); White Blood Cell Count 9.53 K/mm3 (4.00-11.30)
[2022-07-08 03:40] LABS: Magnesium, Blood 2.3 mg/dL (1.6-2.4)
[2022-07-08 03:41] LABS: Albumin, Blood 2.6 g/dL (3.4-5.0); Albumin/Globulin Ratio 0.7 (0.8-1.8); Bilirubin, Total 2.6 mg/dL (0.1-1.0); Bun/Creatinine Ratio 36.3 (12.0-20.0); Calcium, Blood 9.2 mg/dL (8.5-10.1); Creatinine, Blood 1.13 mg/dL (0.60-1.20); Globulin, Blood 3.8 g/dL (2.2-4.0); Phosphorus, Blood 2.7 mg/dL (2.5-4.9); Potassium, Blood 3.9 mmol/L (3.5-5.5); Total Protein, Blood 6.4 g/dL (6.4-8.2)
--- NOTE | 2022-07-08 03:47 | NUR ---
PT'S BLOOD PRESSURES HAVE BEEN SOMEWHAT LOW THIS SHIFT. DID DECREASE PROPOFOL DRIP SLIGHTLY WITH RESULTING IMPROVEMENT IN BLOOD PRESSURES. FULL BEDBATH WITH LINEN CHANGE DONE. PT TOLERATES THIS WELL. HAS HAD MODERATE AMOUNT OF ORAL SECRETIONS. TUBE FEEDING MAINTAINS AT GOAL. PT TOLERATING WELL. HAVE SUCTIONED LIGHT YELLOW SECRETIONS FROM ETT. MOBILIZES SECRETIONS WITH TURNS. WILL CONTINUE TO MONITOR PT.
--- NOTE | 2022-07-08 05:40 | NUR ---
PT HAS BEEN PLACED TO SPONTANEOUS WITH 8/5 SETTINGS. FIO2 30 PERCENT. PT AWAKENS AND IS MOVING ABOUT MORESO IN BED. PROPOFOL IS ON STANDBY. WILL CONTINUE TO MONITOR PT, AND WILL REPORT OFF TO ONCOMING RN
--- NOTE | 2022-07-08 08:23 | NUR ---
AM NOTE... ASSUMED CARE OF PT AT 0700. PT IS INTUABTED AND NOT SEDATED PROPOFOL HAS BEEN OFF SINCE APROX 0500. PT IS RESTLESS IN THE BED, MOVING ALL EXTREMITIES. PT WILL OPEN HIS EYES TO LOUD NOISES BUT DOES NOT FOLLOW COMMANDS OR TRACK MOVMENT. HE IS ON PS: 8/5 AND 30% WITH O2 SATS >90% L/S COARSE T/O MORE COARSE ON THE LEFT THAN THE RIGHT DIM IN THE BASES. HE IS IN SR/ST 90'S-100'S BP STABLE WITH MAPS >65. NO EDEMA IS NOTED ON ASSESSMENT. NG TUBE IS PATENT RUNNING TUBE FEEDS PER ORDER. NG TUBE IS 65 AT THE NARES. BT PRESENT AND HYPOACTIVE, ABD IS SOFT TO PALPATION. TEMP FELICIANO IS PATENT AND DRAINING DARK YELLOW/ANTON URINE TO GRAVITY. RECTAL TUBE IS PATENT AND DRAINING LIGHT BROWN/ROOT LIQUID STOOL. WILL CONTINUE TO MONITOR.
--- NOTE | 2022-07-08 12:00 | NUR ---
PT UPDATE.... PT WAS EXTUBATED AT 1149 TO 2L NC WITH O2 SATS >95%. PT RESPONDS SLOWLY TO QUESTIONS BUT HE RESPONDS APPROPRIATELY. OTHER VS STABLE AT THIS TIME. NG TUBE REMAINES AND IS STABLE. RESTRAINTS ARE D/C'd. RECTAL TUBE AND FELICIANO CONTINUE TO BE PATENT.
--- NOTE | 2022-07-08 13:19 | NUR ---
Spiritual Care Visit | Nurse Request Pt. has been recently intubated, and is minimally responsive. Pt. sister is present and welcomes my visit. Facilitate a short life review. Sister is unsettled that the Pt. would not address his "drinking problem." Listen with empathy and a calming presence. It is this electric tripper machine operator's understanding that rey has not been central in Pts. life. Sister verbalized that her daughter (Pts. niece) woudl be visiting. Niece has a background in caregiving. Pts. sister verbalized gratitude for the spiritual care visit. This electric tripper machine operator will remain available to the Pt. and family
--- NOTE | 2022-07-08 15:21 | NUR ---
Review of pt with nursing. Sister jorge wants joslyn Doyle to make decisions. spoke with Lore. she was pretty fatigued from conversation and put me off want to talk at another time.
--- NOTE | 2022-07-08 15:59 | NUR ---
PT UPDATE.... APROX 1300 THE PT CONVERTED FROM SR TO AFLUTTER W/RVR UP TO THE 160'S, BP WAS SOFT BUT STABLE WITH MAPS >65 AND PT DENIED ANY CHEST PAIN/PRESSURE DURING THIS EVENT. EKG WAS DONE AND PROVIDER WAS CALLED, NEW ORDERS FOR A ONE TIME DOSE OF IV LOPRESSOR AND 25MG LOPRESSOR Q6HR PER TUBE WERE OBTAINED. THE PT RESPONDED WELL TO THE IV LOPRESSOR WITH A CONVERSION BACK TO SR IN THE 70'S-80'S. THE PT WAS TAKEN OF OF 2L NC TO RA WITH O2 SATS >95%. PT HAS MOIST COUGH WITH SOME SPUTUM PRODUCTION, PT IS RELUCTANT TO LET STAFF SUCTION HIS MOUTH HE WOULD RATHER SWALLOW IT. PT'S L/S NOW HAVE INCREASED COARSE RHONCHI T/O THE UPPER/MID LOBES AND STILL DIM IN THE BASES. PT'S TUBE FEED ORDERS WERE UPDATED TO A NEW FORMULA AND INCREASED RATE, PT'S RATE WAS INCREASED FROM 40MLS/HR TO 60MLS/HR AT 1600 WITH A GOAL OF 70MLS/HR. WILL CONTINUE TO MONITOR.
--- NOTE | 2022-07-08 18:28 | NUR ---
SHIFT SUMMARY.... AT APROX 1800 THE PT'S O2 SATS DROPPED DOWN TO 80-81% ON RA, PT HAS BEEN STABLE ON RA FOR SEVERAL HOURS. PT WAS SAT UP IN BED AND NT SUCTIONED D/T GURGGLING NOTED. PT'S L/S HAVE INCREASED RHONCHI T/O. PT WAS PLACED ON 2L NC AND WAS QUICKLY TITRATED UP TO 4L NC TO KEEP O2 SATS >90%. DR. SANFORD WAS CALLED, ORDERS GIVEN FOR STAT CHEST XRAY, NT SUCTION PRN AND CHEST CPT. PT'S TUBE FEEDS WERE ALSO PUT ON HOLD PER DR. SANFORD. PT'S OTHER VS STABLE AT THIS TIME. PT HAS HAD 5 LINEN CHANGES THIS SHIFT D/T HIS RECTAL TUBE LEAKING FROM HIS WRIGGLING AROUND THE BED SO MUCH. THIS RN SPOKE WITH THE PT'S SISTER JUS AND BESSY MCKEE ABOUT THE PT'S CODE STATUS AND WHAT THEY THOUGHT HIS WISHES WOULD BE, THEY BOTH SAID "WE KNOW HE IS AT THE END OF HIS LIFE AND THAT HE WOULD NOT WANT TO BE LIKE THIS FOREVER AND HE WOULD NOT WANT TO BE ON 'LIFE SUPPORT' BUT IF SOMETHING HAPPENS AND HIS HEART STOPS DO EVERY THING YOU CAN UNTIL YOU DON'T THINK IT WILL WORK AND THEN LET HIM GO." PALLIATIVE CARE IS ON HIS CASE WELL. WILL CONTINUE TO MONITOR UNTIL REPORT IS GIVEN TO ONCOMING RN.
--- NOTE | 2022-07-08 20:00 | NUR ---
ASSUMED CARE OF PT AT 1900. REPORT RECEIVED AT BEDSIDE. PT PRESENTS IN BED. 5 L/M O2 TO MAINTAIN SATURATIONS > 90 PERCENT. WILL TITRATE OXYGEN ABLE. TUBE FEEDING ON HOLD PER DR SANFORD. DIGNISHIELD IN PLACE DRAINS ROOT COLORED LIQUID STOOL. REMAINS ON LACTULOSE THERAPY. WILL REVIEW CHART AND PLAN OF CARE FOR THIS PT.
--- NOTE | 2022-07-08 22:09 | NUR ---
HAVE NT SUCTIONED PT WITH RETURN OF ROOT COLORED SECRETIONS. PT'S COUGH EFFORT MODERATE. DID DO CPT TO HELP MOBILIZE SECRETIONS. PT BEING PLACED ON AIRVO TO FACILITATE EASE OF BREATHING BY RT. PT HAS BEEN ABLE TO NOD HEAD 'YES' AND 'NO' TO QUESTIONS. FOLLOWS COMMANDS. ALLOWS SUCTIONING WITH REASONABLE RELUCTANCE. COUGHS WHILE SUCTIONING UPON COMMAND. HAVE PROVIDED PT YANKEOUR SUCTION TO HOLD AND USE TO SELF CLEAR SECRETIONS. PT ACKNOWLEDGES THIS IS HELPFUL. WILL CONTINUE TO MONITOR PT.
--- NOTE | 2022-07-09 00:20 | NUR ---
HAVE SPOKEN WITH DR SANFORD SEVERAL TIMES THIS EVENING. ORDERS HAVE BEEN RECEIVED. PT CURRENTLY ON AIRVO WITH FLOW 50 L/M AND FIO2 60 PERCENT. WILL CONTINUE TO MONIOR FOR ABILITY TO TITRATE FURTHER. HAVE AGAIN USED 14 BELGIAN SUCTION CATHETER TO DO DEEP ORAL SUCTIONING. WAS ABLE TO PASS CATHETER INTO AIRWAY AND RETRIEVE COPIOUS AMOUNTS YELLOW/ROOT SECRETIONS.
[2022-07-09 03:28] LABS: Hematocrit 41.4 % (37.0-53.0); Hemoglobin 14.3 g/dL (13.5-17.5); Mean Corpuscular HGB 34.2 pg (26.0-34.0); Mean Corpuscular HGB Conc 34.5 g/dL (31.5-36.5); Mean Corpuscular Volume 99 fL (80-100); Mean Platelet Volume 11.7 fL (9.1-12.4); Platelet Count 182 K/mm3 (150-400); RDW Coefficient Variation 14.1 % (11.7-14.2); RDW Standard Deviation 50.7 fL (35.1-46.3); Red Blood Cell Count 4.18 M/mm3 (4.30-5.90); White Blood Cell Count 15.81 K/mm3 (4.00-11.30)
[2022-07-09 03:47] LABS: Bun/Creatinine Ratio 49.9 (12.0-20.0); Calcium, Blood 9.9 mg/dL (8.5-10.1); Creatinine, Blood 0.88 mg/dL (0.60-1.20); Potassium, Blood 3.4 mmol/L (3.5-5.5)
--- NOTE | 2022-07-09 06:30 | NUR ---
HAVE BEEN ABLE TO TITRATE O2 TO 3 L/M PER NASAL CANNULA. PT HAS BEEN INCREASINGLY ABLE TO EXPECTORATE HIS SECRETIONS. USES YANKEUR TO SELF CLEAR SECRETIONS. ASSISTED NEEDED. WILL CONTINUE TO MONITOR PT, AND WILL REPORT OFF TO ONCOMING RN.
--- NOTE | 2022-07-09 07:54 | NUR ---
ASSUMED CARE BEDSIDE REPORT FROM JACQUE DÍAZ AT 0700. PT RESTING IN BED. MAKES EYE CONTACT, TRACKS STAFF. FOLLOWS SIMPLE COMMANDS. VOICE SOFT AND GARBLED, DIFFICULT TO UNDERSTAND. STATES HE WANTS TO GO HOME TO TAKE CARE OF HIS CAT. LUNGS CLEAR, 2L VIA NC, O2 SATS >92%. MOIST COUGH, MODERATE ROOT SPUTUM. SR, RATE 70'S. BP STABLE. ABD ROUND, DISTENDED, SOFT, HYPERACTIVE BT. RECTAL TUBE IN PLACE, DRAINING TO GRAVITY, BROWN LIQUID STOOL OUT. NGT TO LEFT NARE, CLAMPED. FELICIANO PATENT, DRAINING YELLOW URINE. SKIN JAUNDICE. WILL CONTINUE TO MONITOR.
--- NOTE | 2022-07-09 17:02 | NUR ---
SHIFT SUMMARY PT MORE ALERT, ABLE TO MAKE NEEDS KNOWN, ASKING FOR WATER, FAILED BEDSIDE SWALLOW. FREQUENT ORAL CARE PERFORMED BY SITTER. PT UP TO CHAIR FOR SEVERAL HOURS VIA LIFT. FOLLOWS SIMPLE COMMANDS. GARBLED SOFT VOICE. GENERALIZED WEAKNESS. PT HAD ONE EPISODE OF DESATURATION, REQUIRING 4L VIA NC AND BREATHING TX. CURRENTLY ON 2L VIA NC. LUNGS CLEAR. ABLE TO MANAGE SECRETIONS c SHELDON. ROOT SPUTUM. SR, RATE 55-75, BP STABLE. ABD DISTENDED, ROUND, SOFT, NON TENDER. BT X 4. RECTAL TUBE IN PLACE. LACTULOSE ORDER CHANGED TO PRN FOR 3 LOOSE STOOLS. NGT TO LEFT NARE, CLAMPED. WILL CONTINUE TO MONITOR UNTIL REPORT TO ONCOMING NURSE.
--- NOTE | 2022-07-09 19:56 | NUR ---
ASSUMED CARE ASSUMED CARE AT 1900. PT A/O TO SELF. UNABLE TO STATE MONTH/YEAR, BIRTHDAY, OR LOCATION. SOFT AND MUMBLED VOICE, DIFFICULT TO UNDERSTAND AT TIMES BUT ABLE TO MAKE NEEDS KNOWN. PT ATTEMPTING TO PULL AT LINES AT TIMES. SITTER AT BEDSIDE. SINUS ARRHYTHMIA RATE 40-70'S. VSS. ON 2L NC W/ SPO2 GREATER THEN 90%. NGT CLAMPED PER MD ORDERS. FELICIANO PATENT AND DRAINING TO GRAVITY. RECTAL TUBE IN PLACE.
--- NOTE | 2022-07-09 20:39 | NUR ---
CALL TO FAMILY PT REQUESTING TO TALK TO FRIEND "MAL". PT STATED THAT BESSY MCKEE WOULD HAVE THE NUMBER. THIS RN CALLED AND TALKED TO RAFI WHO DOES NOT HAVE MAL'S NUMBER. PT UPDATED AND STATES "I WANT TO GO HOME". PT UPDATED ON POC AND SITTER AT BEDSIDE.
--- NOTE | 2022-07-10 01:34 | NUR ---
CALL TO HOSP CALL TO HOSP REGARDING 0115 DOSE OF LOPRESSOR. PT CONTINUES TO BLANKA DOWN TO LOW 40'S AND SUSTAINING 60'S. ORDER TO HOLD 0115 DOSE.
[2022-07-10 03:29] LABS: BASOPHILS ABSOLUTE AUTO 0.02 K/mm3 (0.00-0.23); BASOPHILS PERCENT AUTO 0 % (0-2); EOSINOPHILS PERCENT AUTO 0 % (0-6); Hematocrit 41.1 % (37.0-53.0); Hemoglobin 13.9 g/dL (13.5-17.5); IMMATURE GRAN ABSOLUTE AUTO 0.08 K/mm3 (0.00-0.10); IMMATURE GRAN PERCENT AUTO 1 % (0-1); LYMPHOCYTES ABSOLUTE AUTO 0.67 K/mm3 (0.84-5.20); LYMPHOCYTES PERCENT AUTO 4 % (21-46); MONOCYTES ABSOLUTE AUTO 2.11 K/mm3 (0.16-1.47); MONOCYTES PERCENT AUTO 13 % (4-13); Mean Corpuscular HGB 33.9 pg (26.0-34.0); Mean Corpuscular HGB Conc 33.8 g/dL (31.5-36.5); Mean Corpuscular Volume 100 fL (80-100); Mean Platelet Volume 11.8 fL (9.1-12.4); NEUTROPHILS ABSOLUTE AUTO 13.07 K/mm3 (1.96-9.15); NEUTROPHILS PERCENT AUTO 82 % (41-73); Platelet Count 173 K/mm3 (150-400); RDW Coefficient Variation 14.4 % (11.7-14.2); RDW Standard Deviation 51.3 fL (35.1-46.3); White Blood Cell Count 15.95 K/mm3 (4.00-11.30)
[2022-07-10 03:47] LABS: Albumin, Blood 2.5 g/dL (3.4-5.0); Albumin/Globulin Ratio 0.5 (0.8-1.8); Bilirubin, Total 2.3 mg/dL (0.1-1.0); Bun/Creatinine Ratio 59.4 (12.0-20.0); Calcium, Blood 10.4 mg/dL (8.5-10.1); Creatinine, Blood 0.91 mg/dL (0.60-1.20); Globulin, Blood 4.7 g/dL (2.2-4.0); Magnesium, Blood 2.5 mg/dL (1.6-2.4); Phosphorus, Blood 3.5 mg/dL (2.5-4.9); Potassium, Blood 3.7 mmol/L (3.5-5.5); Total Protein, Blood 7.2 g/dL (6.4-8.2)
--- NOTE | 2022-07-10 05:25 | NUR ---
SHIFT SUMMARY NO ACUTE EVENTS T/O NIGHT. PT RESTLESS, THROWING LEGS OVER SIDE OF BED, AND REACHING FOR THINGS IN THE AIR THIS AM. UP TO THE CHAIR FOR 2 HOURS. PT ABLE TO SPEAK MORE CLEARLY AND IN SHORT SENTENCES. ON RA W/ SPO2 GREATER THEN 90. LESS BRADYCARDIA NOTED T/O THE NIGHT. SEE PREVIOUS NOTE. ONE DOSE OF PRN LACTULOSE GIVEN, 350ML OUT W/ ONE EPISODE OF LEAKAGE. NGT IN PLACE AND CLAMPED. FELICIANO PATENT AND DRAINING TO GRAVITY. 300ML OUPUT. WILL REPORT TO ONCOMING NURSE.
--- NOTE | 2022-07-10 08:02 | NUR ---
ASSUMED CARE REPORT FROM ADAM DÍAZ AT 0700. PT RESTING IN BED. ALERT, MAKES EYE CONTACT. SPEAKS IN SHORT SENTENCES. SOFT, GARBLED SPEECH. ABLE TO MAKE NEEDS KNOWN. A&OX 2. LUNGS CLEAR, RA, O2 SATS >95%. PRODUCTIVE COUGH c ROOT SPUTUM. PT MANAGES c ASSIST FROM TOMASZ WHITFIELD. S ARRTHYMIA, RATE 45-70, BP STABLE. ABD DISTENDED, SOFT, NON TENDER. BT X 4. NGT TO LEFT NARE, 65 CM. WILL RESUME TUBE FEEDS TODAY. RECTAL TUBE IN PLACE, LIQUID BROWN STOOL OUT. LACTULOSE GIVEN. FELICIANO PATENT, DRAINING ANTON URINE TO GRAVITY. WILL CONTINUE TO MONITOR.
--- NOTE | 2022-07-10 17:31 | NUR ---
SHIFT SUMMARY NO ACUTE CHANGES THIS SHIFT. STATUS CHANGED TO PCU. PT SPEAKING IN CLEARER SENTENCES. A&OX 2. FOLLOWS COMMANDS. S ARRTHYMIA, RATE 50-70. BP STABLE. TUBE FEEDS STARTED VIA NGT. PT FAILED BEDSIDE SWALLOW. SPEECH CONSULT ORDERED. REMAINED ON RA, LUNGS DIM IN BASES, PRODUCTIVE COUGH c ROOT SPUTUM. RECTAL TUBE REMAINS IN PLACE, 700 ML LIQUID BROWN STOOL OUT, LACTULOSE X 1 GIVEN THIS SHIFT. FELICIANO D/C'D. WILL CONTINUE TO MONITOR UNTIL REPORT TO ONCOMING NURSE.
--- NOTE | 2022-07-10 21:47 | NUR ---
ASSUMED CARE ASSUMED CARE AT 1900. PT A/O TO SELF, STATES HES IN THE HOSPITAL IN [place]. STATES YEAR IS 1978. PLEASANT AND COOPERATIVE WITH CARE. ABLE TO FOLLOW SIMPLE COMMANDS. RESTLESS AND ATTEMPTING TO PULL ON LINES. CAMERA IN PLACE. VSS. SINUS ARRHYTHMIA RATE 60'S. SBP 100'S. ON RA W/ SPO2 GREATER THE 90%. NGT W/ TF AT 35ML/HR. GOAL 70 ML/HR. RECTAL TUBE IN PLACE W/ BROWN OUTPUT.
--- NOTE | 2022-07-10 23:13 | NUR ---
TRANSFER TO PCU PT TRANSFERRED TO PCU 3 VIA BED WITH THIS RN AT BEDSIDE. PT BELONGINGS SENT WITH PT. PT CALM, WITH NO S/S OF DISTRESS. ON RA. REMOTE MONITORING NOTIFIED OF TRANSFER PRIOR.
[2022-07-11 03:49] LABS: BASOPHILS ABSOLUTE AUTO 0.03 K/mm3 (0.00-0.23); BASOPHILS PERCENT AUTO 0 % (0-2); EOSINOPHILS ABSOLUTE AUTO 0.01 K/mm3 (0.00-0.68); EOSINOPHILS PERCENT AUTO 0 % (0-6); Hematocrit 43.8 % (37.0-53.0); Hemoglobin 14.5 g/dL (13.5-17.5); IMMATURE GRAN ABSOLUTE AUTO 0.12 K/mm3 (0.00-0.10); IMMATURE GRAN PERCENT AUTO 1 % (0-1); LYMPHOCYTES ABSOLUTE AUTO 0.67 K/mm3 (0.84-5.20); LYMPHOCYTES PERCENT AUTO 4 % (21-46); MONOCYTES ABSOLUTE AUTO 2.58 K/mm3 (0.16-1.47); MONOCYTES PERCENT AUTO 17 % (4-13); Mean Corpuscular HGB 33.3 pg (26.0-34.0); Mean Corpuscular HGB Conc 33.1 g/dL (31.5-36.5); Mean Corpuscular Volume 101 fL (80-100); Mean Platelet Volume 11.6 fL (9.1-12.4); NEUTROPHILS PERCENT AUTO 78 % (41-73); Platelet Count 189 K/mm3 (150-400); RDW Coefficient Variation 14.2 % (11.7-14.2); RDW Standard Deviation 52.1 fL (35.1-46.3); Red Blood Cell Count 4.35 M/mm3 (4.30-5.90); White Blood Cell Count 15.41 K/mm3 (4.00-11.30)
[2022-07-11 04:13] LABS: Bun/Creatinine Ratio 62.2 (12.0-20.0); Calcium, Blood 10.9 mg/dL (8.5-10.1); Creatinine, Blood 1.11 mg/dL (0.60-1.20); Potassium, Blood 3.4 mmol/L (3.5-5.5)
--- NOTE | 2022-07-11 06:40 | NUR ---
HEALTH PROGRAM ANALYST SUMMARY ASSUMED CARE OF THE PT AFTER TRANSFER FROM ICU. HE IS ALERT AND ORIENTED TO SELF AND SURROUNDINGS, BUT VERY AGITATED. PT STATING FREQUENTLY "I AM GOING TO WALK OUT OF HERE" AND ATTEMPTING OUT OF BED. SOMEWHAT REDIRECTABLE BUT PERSISTENT. PT ROUNDED ON FREQUENTLY AND FOUND TO BE PULLING AT LINES AND TUBES, SUCH HIS NG TUBE. PT ABLE TO USE URINAL WITH ASSISTANCE. RECTAL TUBE IN PLACE AND DRAINING DARK LIQUID STOOL. GIVEN ONE DOSE OF PRN LACTULOSE. THIS RN HAD CONCERN FOR AGITATION AND INCREASED ANXIETY SO ORDERS OBTAINED FROM DR SOLITARIO FOR CIWAS AND PROTOCOL. PT MEDICATED WITH ATIVAN PER JUN. PLACED ON 2L OF O2 IN HIS MOUTH WHILE SLEEPING. SUCTIONED REGULARLY. PT HAS BEEN SINUS ARRHYTHMIA ON TELE IN THE 60S. SATS REMAIN >92% ON THE 2L AT THIS TIME. BP SOFT BUT STABLE.
--- NOTE | 2022-07-11 07:34 | NUR ---
ASSUMED CARE: PT RESTING QUIETLY IN BED, 2L NC IN MOUTH. NSR IN 60S ON TELE. NG TUBE IN PLACE WITH TF AT 45. RECTAL TUBE PUTTING OUT GREEN FLUID. DIFFICULT TO DETERMINE MENTAL STATUS, RESPONSIVE TO NOXIOUS STIMULI BUT NOT VERBAL OR FOLLOWING COMMANDS AT THIS TIME.
--- NOTE | 2022-07-11 15:24 | NUR ---
pt minimally responsive, Sats are low. Pt frail looks to be declining more. Having worsening secretions may not be tolerating tube feeds. Review of pt with nursing states he was more alert yesterday. Pt sister went home called and discussed his care. Sister states he told her a few weeks ago that his physcian at the [facility] advised him to go home and get his affairs in order that he was dying. We reviewed a plan she made him a DNR. We decided to see how he does today and if he declines further we will transition to comfort care. Therputic discussion of how hard it is to make these decisions for a sibling. We discussed that the plan should not escalte care as we are getting into territory of more suffering. Advised will call if any abrupt changes. Pt risk for seizures and aspiration. Pt joslyn came to see him met with her. discussed paln of care. Pt sister who is her mother stated she has been stubborn and contntious about his care. Pt joslyn advised me she is a retired nurse. Advised her that he is now DNR and we are looking at comfort measures. She was upset by that decision. Discussed with her the plan and advised that her mother and I discussed his belief systems and expressed wishes for care. We discussed the futility of aggressive care with his cachectic condition and comorbid conditions. Pt joslyn states she probably made the decision becasue they had a fight. Advised her that CPR on the pt would be futile and unkind. Theat comfort and supportive care is needed to give him dignity. Pt kps score is 20%. Will continue to follow.
--- NOTE | 2022-07-11 19:37 | NUR ---
SHIFT SUMMARY PATIENT OBTUNDED AND UNRESPONSIVE IN AM. NG TUBE WITH TF RUNNING. RECTAL TUBE WITH BROWN LIQUID OUTPUT. REPOSITIONED Q2H. PRESSURE SORE TO COCCYX, MEPILEX PLACED. RESP STATUS WAS DECLINING AROUND NOON WITH MULTIPL DESATURATIONS DESPITE INCREASED OXYGEN DELIVERY. NG RESIDUAL VOLUME CHECKED AND SHOWED GREATER THAN 50 MLS. PALLIATIVE CARE RECOMMENDED STOPPING TF DUE TO ASPIRATION RISK, LACTULOSE HELD WELL. RESP STATUS IMPROVED THROUGH AFTER NOON. ORAL CARE AND SUCTIONING PRN. PALLIATIVE CARE DISCUSSED CODE STATUS WITH FAMILY AND DR FU AND PATIENT WAS MADE DNR. DISCUSSION ABOUT PATIENT'S END-STAGE LIVER DISEASE, POSSIBLE PLAN FOR HOSPICE. REPORT GIVEN TO ASSISTANT PRODUCTION EDITOR RN.
[2022-07-12 05:06] LABS: Hematocrit 45.2 % (37.0-53.0); Hemoglobin 15.2 g/dL (13.5-17.5); Mean Corpuscular HGB 34.1 pg (26.0-34.0); Mean Corpuscular HGB Conc 33.6 g/dL (31.5-36.5); Mean Corpuscular Volume 101 fL (80-100); Platelet Count 171 K/mm3 (150-400); RDW Coefficient Variation 14.6 % (11.7-14.2); RDW Standard Deviation 53.3 fL (35.1-46.3); Red Blood Cell Count 4.46 M/mm3 (4.30-5.90); White Blood Cell Count 13.73 K/mm3 (4.00-11.30)
[2022-07-12 05:35] LABS: Albumin, Blood 2.3 g/dL (3.4-5.0); Anion Gap 6 mmol/L (6-16); Blood Urea Nitrogen 86 mg/dL (8-24); Bun/Creatinine Ratio 64.2 (12.0-20.0); CO2, Blood 24 mmol/L (21-32); Calcium, Blood 10.3 mg/dL (8.5-10.1); Chloride, Blood 119 mmol/L (98-108); Creatinine, Blood 1.34 mg/dL (0.60-1.20); Glomerular Filtration Rate 56 (60-); Glucose, Blood 116 mg/dL (70-99); Magnesium, Blood 2.6 mg/dL (1.6-2.4); Phosphorus, Blood 4.5 mg/dL (2.5-4.9); Potassium, Blood 4.2 mmol/L (3.5-5.5); Sodium, Blood 149 mmol/L (136-145)
--- NOTE | 2022-07-12 06:34 | NUR ---
SHIFT SUMMARY PATIENT ALERT AND ORIENTED TO SELF, HAS BEEN NONVERBAL OVERNIGHT BUT ANSWERS YES/NO QUESTIONS BY NODDING AND SHAKING HIS HEAD. HEART RATE AND BLOOD PRESSURE STABLE. PATIENT STARTED THE SHIFT ON ROOM AIR BUT STARTED DESATING IN TRESTLE MECHANIC. SUCTIONED SECRETIONS FROM PATIENT'S THROAT WHICH HELPED TEMPORARILY BUT PATIENT STARTED DESATING AGAIN AND HAD TO BE PLACED ON A NON-REBREATHER AT 15L TO KEEP O2 SAT ABOVE 90%. PATIENT DID NOT INDICATE FEELING SHORT OF BREATH. WILL CONTINUE TO MONITOR. CALL LIGHT WITHIN REACH.
--- NOTE | 2022-07-12 10:09 | NUR ---
Pt is more active, moving his extremities spontaneously and moving his head back and forth. [facility] that [facility] was nodding to conversation just a few minutes ago.
--- NOTE | 2022-07-12 11:00 | NUR ---
After bath, repositioning, etc. spo2 is 86% with good pleth on 14 l/min by hi flow nasal cannula. Switched over to non rebreather mask to improve oxygenation. Spo2 is now 90%. RR 21/minute. Lung sounds are without wheezing. No coughing. HOB is 30 degrees elevated.
--- NOTE | 2022-07-12 11:24 | NUR ---
Pt is now requiring 100% NRB mask, and spo2 ranging between 86-90%. He is a little bit restless, but not responding to instructions. EYes are fixed, moving head and extremities spontaneously, weakly, but cannot tell if there is any definite intention.
--- NOTE | 2022-07-12 11:37 | NUR ---
Spo2 is 96-97% on 100% NRB mask; cyanosis of the toes and cool feet are noted. Warm blankets applied, but the pt is moving his extremities and the blankets are constantly being removed by this. Cherie with palliative care is here, saw the pt and called pt's sister who will be in later today.
--- NOTE | 2022-07-12 13:28 | NUR ---
Sister of patient came out of room, said that they are ready for him to be on comfort measures. Call to Cherie Espana RN and informed her of this.
--- NOTE | 2022-07-12 14:06 | NUR ---
Pt requirieng more oxygen. he is having more aggitation. He opens eyes and tries not respond he is is bcoming more non verbal. May be having some terminal aggitation. Called his sister to come in she came with his friend. Left them to spend some time alone with him and to reminisce. We have been talking every day. She thanked me for being patient with her daughter. Pt niece loves him and we will support her through her grief. We reviewed his slow decline. Pt sister states he was told to go on hospice she understand he is close. After answering her questions about comfort care. I advised her to speak with her family and think about accpting comfort and hospice. She later came out and requested comfort care to the nurse. We confirmed and notified doctor. ptlaced on comfort. His kps score is 10 to 20 percent. He may not tolerate transfer the way his oxygen is dropping. Will continue to monitor.
--- NOTE | 2022-07-12 14:26 | NUR ---
NG tube was dc'd. Pt was given high flow nasal cannula for O2 delivery in place of NRB mask, for comfort. Telemetry dc'd and pt was given pericare for urinary incontinence, attends was changed and he was repositioned with OFFICE SERVICES ASSOCIATE assistance.
--- NOTE | 2022-07-12 16:25 | NUR ---
Pt coughing and production noted. Orally suctioned, evacuated whitish sputum. Atropine given for secretions. Repositioned on the right side, HOB elevated.
--- NOTE | 2022-07-13 02:51 | NUR ---
PATIENT PASSING PATIENT AT 0230. PATIENT'S SISTER, JUS [phone], NOTIFIED. SHE WILL VETERINARY SCIENCE TEACHER PATIENT'S BELONGINGS LATER TODAY, [facility] IN [place] WAS THE CHOSEN HOME. DIESEL FLEET MECHANIC RESIDENT, DR CARRASCO, ALSO NOTIFIED.
== END 2022-07-13 04:40 | DRG 432 ==
LOC: ER 14:38 → PCU 16:16 → ICUW 16:16 → ICUE 07-10 18:24 → PCU 07-10 22:46
PROVIDERS: Emergency Medicine; Internal Medicine; Internal Medicine Critical Care Medicine; ADMIT Internal Medicine
PROC: 5A1945Z Respiratory Ventilation, 24-96 Consecutive Hours (ICD-10-PCS; principal; 2022-07-05)
PROC: HZ2ZZZZ Detoxification Services for Substance Abuse Treatment (ICD-10-PCS; 2022-07-05)
PROC: 4A033R1 Measurement of Arterial Saturation, Peripheral, Percutaneous Approach (ICD-10-PCS; 2022-07-05)
PROC: 3E02340 Introduction of Influenza Vaccine into Muscle, Percutaneous Approach (ICD-10-PCS; 2022-07-05)
PROC: 0W9G3ZZ Drainage of Peritoneal Cavity, Percutaneous Approach (ICD-10-PCS; 2022-07-06)
PROC: 0DH67UZ Insertion of Feeding Device into Stomach, Via Natural or Artificial Opening (ICD-10-PCS; 2022-07-07)
PROC: 3E0G76Z Introduction of Nutritional Substance into Upper GI, Via Natural or Artificial Opening (ICD-10-PCS; 2022-07-07)
PROC: 0T9B70Z Drainage of Bladder with Drainage Device, Via Natural or Artificial Opening (ICD-10-PCS; 2022-07-10)
PROC: 30233J1 Transfusion of Nonautologous Serum Albumin into Peripheral Vein, Percutaneous Approach (ICD-10-PCS; 2022-07-13)
DX: K70.41 Alcoholic hepatic failure with coma (principal); E43 Unspecified severe protein-calorie malnutrition; J96.01 Acute respiratory failure with hypoxia; J15.0 Pneumonia due to Klebsiella pneumoniae; R64 Cachexia; K76.6 Portal hypertension; Z66 Do not resuscitate; Z51.5 Encounter for palliative care; E87.0 Hyperosmolality and hypernatremia; N17.9 Acute kidney failure, unspecified; E87.1 Hypo-osmolality and hyponatremia; I48.92 Unspecified atrial flutter; I85.10 Secondary esophageal varices without bleeding; K70.31 Alcoholic cirrhosis of liver with ascites; Z68.23 Body mass index [BMI] 23.0-23.9, adult; D69.6 Thrombocytopenia, unspecified; F10.10 Alcohol abuse, uncomplicated; D64.9 Anemia, unspecified; I10 Essential (primary) hypertension; K21.9 Gastro-esophageal reflux disease without esophagitis; R77.8 Other specified abnormalities of plasma proteins; K31.89 Other diseases of stomach and duodenum; E86.0 Dehydration; I48.0 Paroxysmal atrial fibrillation; E87.6 Hypokalemia; Z20.822 Contact with and (suspected) exposure to COVID-19; Z98.890 Other specified postprocedural states; Z87.891 Personal history of nicotine dependence; Z79.899 Other long term (current) drug therapy; Z87.19 Personal history of other diseases of the digestive system; Z23 Encounter for immunization
CPT/HCPCS: 0241U; 31720; 36415; 36600; 51702; 70450; 71045; 72125; 80047; 80048; 80053; 80069; 82140; 82330; 82533; 82550; 82553; 82803; 82947; 83735; 84100; 84443; 84484; 85014; 85018; 85025; 85027; 85610; 85730; 87070; 87077; 87186; 87205; 93005; 93010; 94002; 94003; 94640; 94664; 94667; 94668; 94762; 96361-59; 96365-59; 96372-59; 97162; 97530; 99285-25; A9270; G0480; J0696; J1650; J1940; J2060; J2704; J3010; J3411; J3480; J7030; J7050; P9047